=== PATIENT | male | born 2000 | race Hispanic/Latino ===

== ENCOUNTER 2025-02-17 12:47 | Emergency (ER) | payer OTHER, SELFPAY ==
[2025-02-17 12:57] VITALS: BP 134/66
--- NOTE | 2025-02-17 13:17 | ED.GENMED ---
History of Present Illness
General
Chief Complaint: Musculo-Skeletal Complaint
Source: other (boss)
Exam Limitations: none
Time Seen by Provider: 02/17/25 13:01
History of Present Illness
History of Present Illness:
Patient crushed his finger between 2 pieces of metal. No other injury except for the right fourth finger. Last tetanus is unknown. No use. Pain is moderate
Phy Exam
Physical Exam
Physical Exam:
General: Nontoxic appearing in no distress
Skin: Warm and dry, no rash
Neuro: Alert, nontoxic, grossly nonfocal
Psychiatric: Good eye contact and appropriate
Musculoskeletal: Question degree to the right third finger with a laceration at the middle phalanx on the volar aspect. Motor or sensory neurovascular intact. 4th and 5th digits within normal limits. Hand normal.
Course
Orders/Labs/Results
Orders:
Orders
02/17/25 12:59
Finger(s)/Thumb 2 View Rt [CR Finger(s)/thumb Min 2 Vw Rt] Urgent
Comment:
Reason For Exam: injury
Indicate Which Finger:: Middle Finger
Vital Signs
Initial and Last Documented VS:
Initial Vital Signs
Temp Pulse Resp BP Pulse Ox
98 F 78 16 134/66 100
02/17/25 12:57 02/17/25 12:57 02/17/25 12:57 02/17/25 12:57 02/17/25 12:57
Last Documented Vital Signs
Temp Pulse Resp BP Pulse Ox
98 F 78 16 134/66 100
02/17/25 12:57 02/17/25 12:57 02/17/25 12:57 02/17/25 12:57 02/17/25 13:18
Procedures
Digital Block
Location of injection for digital block: head of metacarpals
Indiction for Digital Block: other (Evaluation and irrigation)
Was sensory exam normal prior to exam?: intack pin prick
Complications: none- good anesthesia
*Radiology
Radiology exam reviewed: preliminary read by ED provider (Negative)
*Pulse Oximetry
SaO2: 100
Oxygen Mode of Delivery: Room air
Patient hypoxic: no
*Critical Care Note
Total Time (30-74mins, 75-104mins- exclusive of procedures): Not Applicable
Update Note
Update Note:
Irrigated well. Small open wounds to the dorsal and volar aspect of the middle phalanx. Nothing suturable. Cleanse splint antibiotics and follow-up
ED Attending Note
-
Portions of this chart may have been created with voice recognition software.� Occasional wrong word or��sound alike� substitutions may have occurred due to the inherent limitations of voice recognition software.
Discharge Plan
Departure
Patient Disposition: Home (Routine Discharge)
Date of Disposition: 02/17/25
Time of Disposition: 13:45
Patient with high blood pressure during this ER visit?: Yes
Discharge Problem:
Crush injury right third finger
Instructions: Crush Injury (DC), Wound care - ED discharge instructions, BLOOD PRESSURE
Prescriptions:
New
cephalexin 500 mg capsule
500 mg PO TID 7 Days Qty: 21 0RF
Referrals:
Keith Padilla MD [Active, Orthopedics] - Follow up in 5-7 days
Activity Restrictions/Additional Instructions:
Antibiotics as directed.
Change dressing daily
Advil or Motrin for pain
Call orthopedics for reevaluation next week
Interventions
Interventions:
*Risk Screen - Suicide Last Done: 02/17/25 12:57
*Neglect/Abuse Screening Last Done: 02/17/25 12:57
Discharge Date and Time
Print Language: [id number]
[2025-02-17] MEDS: MOTRIN 600 MG PO (13:57)
[2025-02-17] MEDS: KEFLEX 500 MG PO (13:57)
[2025-02-17] MEDS: ADACEL 0.5 ML IM (13:58)
== END 2025-02-17 14:07 | disposition home or self-care (01) ==
LOC: EMR 12:47
PROVIDERS: EMERGENCY PHYSICIAN Emergency Medicine
DX: S67.192A Crushing injury of right middle finger, initial encounter (principal); W23.0XXA Caught, crushed, jammed, or pinched between moving objects, initial encounter; R03.0 Elevated blood-pressure reading, without diagnosis of hypertension; Z23 Encounter for immunization; Y99.0 Civilian activity done for income or pay
CPT/HCPCS: 64450; 99285; 90471; 29130; 73140; 90715